=== PATIENT | female | born 1970 | race Caucasian/White ===

== ENCOUNTER 2024-03-18 09:30 | Inpatient (IN) ==
--- NOTE | 2024-03-08 10:25 | Anesthesiology Consultation ---
Date of Service March 08, 2024 Assessment & Plan (1) Encounter for pre-operative examination: Chart Review Chart Review: Acceptable Risk for Surgery and Patient NOT seen in Pre Admission Testing - Check test AM DOS -Infectious Disease screening: Per PAT nursing assessment on 03/03/24. No known infectious disease contacts in past 10 days or current infectious disease symptoms. No recent travel outside the country. History Surgery Operation Date: 03/18/24 11:05 Proposed Procedures p Laparoscopic Ileocecectomy - Bassam Almazan, DO Height/Weight Height: 5 ft 4 in Weight: 89.358 kg Allergies Allergy/AdvReac Type Severity Reaction Status Date / Time amoxicillin Allergy Severe Difficulty Verified 03/03/24 11:48 Breathing erythromycin base Allergy Severe Difficulty Verified 03/03/24 11:48 Breathing Penicillins Allergy Severe Difficulty Verified 03/03/24 11:48 Breathing Medications Home Medications Medication Instructions Recorded Confirmed Last Taken bupropion HCl 150 mg 24 hr tablet, 150 mg PO QAM 01/02/24 03/03/24 01/08/24 extended release buspirone 5 mg tablet 5 mg PO QAM 01/02/24 03/03/24 01/08/24 kiygygsvlkri-Yb-npzb-minerals 27 1 tab PO QAM 01/02/24 03/03/24 01/08/24 mg-0.4 mg tablet Past Medical History Medical History Anxiety 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 Past Family History Family History Mother Diabetes Heart disease Hypertension Dyslipidemia Father Heart disease Hypertension Denies family history of Ovarian cancer Breast cancer Colorectal cancer Past Surgical History Surgical History H/O colonoscopy History of hernia repair (1970) as infant Social History Smoking Status: Never smoker Do You Dip or Chew Tobacco: No Hx Alcohol Use: Yes Alcohol type: beer alcohol intake frequency: a few times a month Hx Substance Use: No substance use type: does not use Lab Results Anesthesia Preop Results Results Anesthesia Widget: WBC 8.32 K/ul (4.8-10.8) 03/05/24 Hgb 14.3 g/dl (12.0-16.0) 03/05/24 Hct 43.0 % (37.0-47.0) 03/05/24 Plt 260 K/uL (130-400) 03/05/24 Na 139 mmol/L (136-145) 03/05/24 K 3.8 mmol/L (3.5-5.1) 03/05/24 Cl 102 mmol/L (98-107) 03/05/24 CO2 30 mmol/L (21-32) 03/05/24 BUN 14 mg/dl (6-23) 03/05/24 Creat 0.65 mg/dl (0.6-1.2) 03/05/24 Glucose Level 81 mg/dl (70-99(Fasting)) 03/05/24 Testing Electrocardiogram Date: 03/05/24 Findings: + NSR @ (75bpm) Rightward axis Other Testing PET Scan 02/25/24= Borderline enlarged mediastinal lymph nodes demonstrate increased tracer uptake. No pathologic tracer uptake identified within the abdomen, pelvis or extremities. No bowel wall thickening or pathologically enlarged mesenteric lymph nodes.
--- NOTE | 2024-03-18 09:57 | History & Physical Bridge Note ---
Date of Service March 18, 2024 History & Physical Bridge Note I have examined the patient, reviewed the History & Physical and in the interval since the performance of the History & Physical I have noted the following changes of clinical significance: no changes noted
[2024-03-18] MEDS ORDERED: STAT IV/IM STA (10:12)
[2024-03-18] MEDS ORDERED: OCTREOTIDE ACETATE 500 MCG in SODIUM CHLORIDE 0.9% 100 ML IV PRN (10:15)
[2024-03-18] MEDS ORDERED: ePHEDrine sulfate 50 MG/ML AMP IV PRN (10:17)
[2024-03-18] MEDS ORDERED: HYDROmorphone INJ 1 MG/ML SYRINGE IV PRN (10:17)
[2024-03-18] MEDS ORDERED: ATROPINE SULFATE 0.1 MG/ML 10ML SYR IV PRN (10:17)
[2024-03-18] MEDS ORDERED: PROMETHAZINE HCL 6.25 MG in SODIUM CHLORIDE 0.9% 50 ML IV PRN (10:18)
[2024-03-18] MEDS: metroNIDAZOLE 500 MG/100 ML BAG IV SCH ×2 (10:18→17:21)
[2024-03-18] MEDS: LR 15ML/HR IV SCH (10:19)
[2024-03-18] MEDS ORDERED: LIDOCAINE 2% 2 ML VIAL/AMP(20MG/ML) INFIL ONE (10:26)
[2024-03-18] MEDS ORDERED: fentaNYL citrate PF 100 MCG/2 ML VIAL ONE ×2 (10:26→11:39)
[2024-03-18] MEDS ORDERED: DEXAMETHASONE SOD INJ 4 MG/ML VIAL ONE (10:26)
[2024-03-18] MEDS ORDERED: MIDAZOLAM HCL 1 MG/ML 2ML VIAL ONE (10:26)
[2024-03-18] MEDS ORDERED: PROPOFOL IV EMULSION 10 MG/ML 20 ML VIAL IV ONE (10:26)
[2024-03-18] MEDS ORDERED: ROCURONIUM BROMIDE 10 MG/ML 5 ML VIAL IV ONE ×2 (10:27→11:45)
[2024-03-18] MEDS: CIPROFLOXACIN / D5W 400 MG/200 ML BAG IV SCH ×2 (11:09→18:26)
[2024-03-18] MEDS ORDERED: LABETALOL HCL IV 5 MG/ML 20ML IV ONE (11:49)
[2024-03-18] MEDS ORDERED: SUGAMMADEX SODIUM 200 MG/2 ML VIAL IV ONE (13:20)
[2024-03-18] MEDS ORDERED: KETOROLAC 30 MG/ML VIAL ONE (13:24)
[2024-03-18] MEDS: BUPIVACAINE LIPOSOME 1.3% 266 MG/20 ML VIAL ONE (13:27)
[2024-03-18] MEDS: BUPIVACAINE/EPINEPHRINE 0.5% MPF 1:200,000 30 ML VIAL ONE (13:27)
--- NOTE | 2024-03-18 13:44 | Operative Report ---
PG Post Operative Report Pre & Post Diagnosis Operation Date: 03/18/24 11:55 Pre-Op Diagnosis: Carcinoid Tumor Determined by Biopsy Small Intestine Post-Op Diagnosis: Carcinoid Tumor Determined by Biopsy Small Intestine I identified the patient and participated in the time-out.: Yes Procedure Operation Date: 03/18/24 11:55 Actual Procedures p Laparoscopic Ileocecectomy(Not Applicable);partial omentectomy - Bassam Almazan DO Surgeon Bassam Almazan DO Patroller wolf Mccray; roman Quintana Estimated Blood Loss 50 Findings Consistent with Post-Op Diagnosis Specimens terminal ileum cecum portion of omentum Description of Procedure After informed consent was obtained the patient was taken to the operating room and placed in supine position. After successful intubation a Gibson catheter was placed and the abdomen was sterilely prepped and draped in usual fashion. I began by making a supraumbilical incision with an 11 blade scalpel. This was carried down through the soft tissue using cautery. Anterior fascia was opened using cautery and two #0 Vicryl stay sutures were placed. Peritoneum was elevated with hemostats and incised under direct vision using a Metzenbaum scissor. A finger sweep was performed and a 12 mm Verdin trocar was placed. The abdomen was insufflated to 18 mmHg. Laparoscope was inserted and the abdomen examined 360 degrees. A suprapubic 5 mm port and a left lower quadrant 12 mm port were placed under direct vision. I began by running the bowel and examining all peritoneal surfaces. There was no evidence of any other tumor burden on the liver or peritoneal surfaces ,small bowel mesentery or serosa etc. Her anatomy looked completely normal. Next I began by mobilizing the right colon along the white line of Toldt using the harmonic scalpel. I carried this up and around the hepatic flexure. A portion of omentum was also stuck to the right colon and I had to divide this to free up the right colon. Next I transected the terminal ileum several inches proximal to the ileocecal valve using a OFELIA brown cartridge linear stapler. Next a made a small window in the mid right colon proximal to the right colic vessels. I then used a OFELIA purple cartridge linear stapler to transect the junction of the right colon and cecum. I took down the mesentery of the terminal ileum and cecum staying low as possible to try and incorporate some lymph nodes with the specimen. Next I found a spot in the right upper quadrant and made a horizontal incision with a new scalpel. This was carried down through the soft tissue as well as fascia using cautery. Once in the abdomen I was then able to deliver the specimen and send it to pathology. There was a fair amount of omentum overlying the distal right and transverse colon so I did a partial omentectomy. This was sent as specimen as well. This was performed using a harmonic scalpel. Next we performed a aiaj-hm-hdej small bowel to distal right colon anastomosis using a Auspherix cartridge linear stapler. The common enterotomy was closed with a 2 layer handsewn closure using 3-0 Monocryl for serosal mucosal layers followed by 3-0 silk in Lembert fashion for serosa. 3-0 silk was also used to place a crotch stitch. There was adequate hemostasis. The anastomosis was widely patent with no evidence of ischemia. We then closed the muscle and fascia using #1 PDS in running fashion. We re-insufflated the abdomen. The anastomosis again looked intact with no twisting of the small bowel. There was adequate hemostasis. We thoroughly irrigated the right upper quadrant and right abdomen. The trocars were all removed and the abdomen desufflated. The fascia of the camera port was closed using 0 Vicryl in a vjlopb-[id number] fashion. All the wounds were irrigated. The larger incision was closed using 3-0 Vicryl for deep layers and 4-0 Monocryl for skin. 20 cc of Exparel was also put around this incision for postoperative analgesia. Smaller incisions were all closed using 4-0 Monocryl. Marcaine with epinephrine were injected around these incisions. Dermabond glue was used for the smaller incisions benzoin Steri-Strips gauze and tape were used for the larger incision. The patient was awakened extubated and transferred to recovery in stable condition. My nurse practitioner as well as physician visitor services information assistant were present for the entire case and were instrumental in providing exposure, running the camera, assisting with the anastomosis wound closure and dressing placement. I attest to the content of the Intraoperative Record and any orders documented therein. Any exceptions are noted below.
--- NOTE | 2024-03-18 14:35 | Anesthesiology Progress Note ---
Date of Service March 18, 2024 Anesthesia Post Procedure Vital Signs Vital Signs: Temp Pulse Resp BP Pulse Ox O2 Del Method O2 Flow Rate 03/18/24 14:25 62 16 121/73 96 Room Air 03/18/24 14:15 69 14 138/69 95 Room Air 03/18/24 14:05 69 20 136/75 98 Oxymask 3 03/18/24 13:54 36 C L 66 14 141/71 H 99 Oxymask 6 03/18/24 09:59 36.5 C 90 18 169/88 H 99 Room Air Transfer of Care Handoff Completed per policy Notes Mental Status: alert / awake / arousable and participated in evaluation Patient Amnestic to Procedure: Yes Nausea / Vomiting: adequately controlled Pain: adequately controlled Airway Patency, RR, SpO2: stable & adequate BP & HR: stable & adequate Hydration State: stable & adequate Anesthetic Complications: no major complications apparent and Pt Satisfied with anesthetic care
[2024-03-18] MEDS: fentaNYL citrate PF 100 MCG/2 ML VIAL IV PRN (14:47)
[2024-03-18] MEDS ORDERED: PROMETHAZINE 12.5 MG/50.5 ML BAG IV PRN (16:00)
[2024-03-18] MEDS ORDERED: HYDROmorphone INJ 0.5 MG/0.5 ML SYR IV PRN (16:00)
[2024-03-18] MEDS ORDERED: oxyCODONE/ACETAMINOPHEN 5mg/325mg TAB PO PRN (16:00)
[2024-03-18] MEDS ORDERED: ACETAMINOPHEN 1,000 MG/100 ML VIAL IV PRN (16:00)
[2024-03-18] MEDS: SODIUM CHLORIDE 0.9% 1,000 ML IV SCH (16:32)
[2024-03-18] MEDS: oxyCODONE/ACETAMINOPHEN 5mg/325mg TAB PO PRN (16:35)
[2024-03-18] MEDS ORDERED: Nursing to Pharmacy Communication SCH (19:15)
[2024-03-19] MEDS: CIPROFLOXACIN / D5W 400 MG/200 ML BAG IV SCH (05:59)
[2024-03-19] MEDS: CEROVITE ADV FORMULA TAB PO SCH (07:34)
[2024-03-19] MEDS: busPIRone 5 MG TAB PO SCH (07:34)
[2024-03-19] MEDS: buPROPion XL 150 MG TABCR PO SCH (07:34)
[2024-03-19 07:42] LABS: Basophils # (auto) 0.01 K/uL (0.00-0.20); Basophils % (auto) 0.1 %; Hematocrit (blood only) 38.1 % (37.0-47.0); Hemoglobin 12.8 g/dl (12.0-16.0); Immature Granulocytes # (auto) 0.04 K/uL (0.01-0.20); Immature Granulocytes % (auto) 0.4 %; Lymphocytes # (auto) 1.27 K/uL (1.20-3.40); Lymphocytes % (auto) 11.2 %; Mean Corpuscular Hemoglobin 30.5 pg (25.0-34.0); Mean Corpuscular Hgb Conc 33.6 g/dL (32.0-36.0); Mean Corpuscular Volume 90.9 fL (80.0-100.0); Mean Platelet Volume 10.5 fL (9.4-12.4); Monocytes # (auto) 0.98 K/uL (0.11-0.59); Monocytes % (auto) 8.6 %; Neutrophils # (auto) 9.05 K/uL (1.40-6.50); Neutrophils % (auto) 79.7 %; Platelet Count 229 K/uL (130-400); RDW Coefficient of Variation 12.1 % (11.5-14.5); RDW Standard Deviation 40.1 fL (36.4-46.3); Red Blood Count 4.19 M/uL (4.20-5.40); White Blood Count 11.35 K/ul (4.8-10.8)
[2024-03-19 07:46] LABS: Calcium 8.5 mg/dl (8.6-10.3); Creatinine Clr Calc Pharmacy 121.4 ml/min; Potassium 3.9 mmol/L (3.5-5.1)
[2024-03-19] MEDS: HYDROmorphone INJ 0.5 MG/0.5 ML SYR IV PRN (08:25)
--- NOTE | 2024-03-19 08:32 | Surgery Progress Note ---
Date of Service March 19, 2024 Assessment & Plan (1) History of colon surgery: Plan: doing as expected. stay on clears until bowel fx labs/vitals look good Dr. 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 Admission and Anticipated Discharge Date Admission Date: March 18, 2024 Subjective pt seen. having expected pain but otherwise no complaints. no nausea. monica clears. Physical Exam Physical Exam: alert. nad abd: soft. expected tenderness. dressings c/d/i Results & Data Vital Signs (Past 12 Hours) Vital Signs Temp Pulse Resp BP Pulse Ox O2 Del Method 03/19/24 07:41 36.9 C 70 15 122/66 98 Room Air 03/19/24 03:00 36.7 C 63 18 106/61 96 Room Air 03/18/24 23:00 36.6 C 73 18 103/66 95 Room Air PG Care Time/CCT Total # of Minutes Spent Total Time Spent with Patient: Total time spent is greater than 50% in coordination of care (as documented) at patient's floor/unit and/or counseling patient: Coding Level of Care Code 97264 Post Operative Follow-Up Diagnoses History of colon surgery Z98.890
[2024-03-20 06:55] LABS: Basophils # (auto) 0.04 K/uL (0.00-0.20); Basophils % (auto) 0.5 %; Eosinophils # (auto) 0.08 K/uL (0.00-0.50); Eosinophils % (auto) 0.9 %; Hematocrit (blood only) 38.3 % (37.0-47.0); Hemoglobin 12.7 g/dl (12.0-16.0); Immature Granulocytes # (auto) 0.02 K/uL (0.01-0.20); Immature Granulocytes % (auto) 0.2 %; Lymphocytes % (auto) 21.4 %; Mean Corpuscular Hemoglobin 30.6 pg (25.0-34.0); Mean Corpuscular Hgb Conc 33.2 g/dL (32.0-36.0); Mean Corpuscular Volume 92.3 fL (80.0-100.0); Mean Platelet Volume 9.9 fL (9.4-12.4); Monocytes # (auto) 0.79 K/uL (0.11-0.59); Monocytes % (auto) 9.4 %; Neutrophils % (auto) 67.6 %; Platelet Count 181 K/uL (130-400); RDW Coefficient of Variation 12.4 % (11.5-14.5); RDW Standard Deviation 42.1 fL (36.4-46.3); Red Blood Count 4.15 M/uL (4.20-5.40); White Blood Count 8.43 K/ul (4.8-10.8)
[2024-03-20 07:27] LABS: BUN Creatinine Ratio 14.5 (10-20); Calcium 8.3 mg/dl (8.6-10.3); Potassium 3.8 mmol/L (3.5-5.1)
--- NOTE | 2024-03-20 13:42 | Surgery Progress Note ---
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 She is now POD 2 s/p ileocecectomy with omentectomy with Dr. Almazan on 03/18/2024. The patient is progressing well, hemodynamically stable without fevers and tolerating clear liquids. H/H stable. She is not yet passing flatus or having BMs. Continue with clear liquids at this time. Will hold off advancing diet until bowel function returns. Previous single episode of lightheadedness yesterday has not returned and hemodynamics have been restored. Will Hep-Lock IV as patient is tolerating clears well. Continue pain control with oral analgesics. Antiemetic as needed. Encourage increased ambulation with assistance as pain control becomes more consistent. Will initiate chemical DVT prophylaxis. Admission and Anticipated Discharge Date Admission Date: March 18, 2024 Subjective Patient feels as though she is improving with notable mild improvement in postoperative pain. She continues to tolerate clear liquids but has not yet passed flatus or had bowel movements. She has been able to ambulate from bed to chair. Physical Exam Constitutional: not ill appearing, not disheveled and not in distress Respiratory: normal respiratory effort; no respiratory distress, no labored breathing and does not use accessory muscles Gastrointestinal (Abdomen): Appropriate postsurgical abdomen. Mild irritation at the umbilical incision. The incision remains intact sealed with Dermabond. There is no active drainage and no swelling. Surgical bandages over port sites to the lateral right abdomen. 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
--- NOTE | 2024-03-21 05:15 | Surgery Progress Note ---
<Statement entered by Francisco Quan DO - 03/21/24 12:47> I have seen and examined this patient this am. Note taken to the PA's encounter of clear drainage. There was no active drainage at the time of my inspection. Some mild erythema surrounding the incisions. At the umbilicus, this appears somewhat less. No evidence for a drainable collection at this time, there is no swelling. Will continue to follow. Otherwise she is doing quite well without complaints. Hardly any pain this am and feels much better today. States she is ambulating aggressively, no flatus as of yet and continues to tolerate clears without any issues. 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 labs when available Concerning patient's umbilical incisionsuspect patient may be draining some inflammatory fluid/has developed or developed a small seroma. At the time my exam the drainage did appear clear and was not purulent. Will continue to monitor closely Patient is receiving Lovenox for DVT prevention Admission and Anticipated Discharge Date Admission Date: March 18, 2024 Subjective Patient is currently resting comfortably in bed. She reports minimal pain from her surgical incisions. She has not had a bowel movement or passed any flatus since surgery. She does deny any nausea or vomiting. Patient says that she has been able to ambulate in the hallway with some assistance. (This morning when ambulating she says she felt somewhat steady without any lightheadedness or dizziness). She denies any fevers, shakes, or chills. She denies any shortness of breath. Physical Exam Gastrointestinal (Abdomen): Abdomen is soft with minimal distention. Patient has some appropriate tenderness near her surgical incisions. Her umbilical decision has a small amount of serous drainage coming from the and small amount of surrounding erythema. 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
[2024-03-21 07:24] LABS: Basophils # (auto) 0.04 K/uL (0.00-0.20); Basophils % (auto) 0.5 %; Eosinophils # (auto) 0.08 K/uL (0.00-0.50); Eosinophils % (auto) 0.9 %; Hematocrit (blood only) 37.8 % (37.0-47.0); Immature Granulocytes # (auto) 0.05 K/uL (0.01-0.20); Immature Granulocytes % (auto) 0.6 %; Lymphocytes # (auto) 1.44 K/uL (1.20-3.40); Lymphocytes % (auto) 16.2 %; Mean Corpuscular Hemoglobin 30.9 pg (25.0-34.0); Mean Corpuscular Hgb Conc 34.4 g/dL (32.0-36.0); Mean Corpuscular Volume 89.8 fL (80.0-100.0); Mean Platelet Volume 10.5 fL (9.4-12.4); Monocytes # (auto) 0.68 K/uL (0.11-0.59); Monocytes % (auto) 7.7 %; Neutrophils # (auto) 6.59 K/uL (1.40-6.50); Neutrophils % (auto) 74.1 %; Platelet Count 221 K/uL (130-400); RDW Coefficient of Variation 11.8 % (11.5-14.5); RDW Standard Deviation 38.5 fL (36.4-46.3); Red Blood Count 4.21 M/uL (4.20-5.40); White Blood Count 8.88 K/ul (4.8-10.8)
[2024-03-21 07:35] LABS: Calcium 8.8 mg/dl (8.6-10.3); Creatinine Clr Calc Pharmacy 140.8 ml/min; Potassium 3.6 mmol/L (3.5-5.1)
[2024-03-21] MEDS: ENOXAPARIN INJ 40 MG/0.4 ML SYR SQ SCH (10:11)
[2024-03-22] MEDS: ONDANSETRON INJ 2 MG/ML 2 ML VIAL IV PRN (05:03)
[2024-03-22 10:03] LABS: Basophils # (auto) 0.02 K/uL (0.00-0.20); Basophils % (auto) 0.2 %; Eosinophils # (auto) 0.02 K/uL (0.00-0.50); Eosinophils % (auto) 0.2 %; Hematocrit (blood only) 45.9 % (37.0-47.0); Hemoglobin 15.5 g/dl (12.0-16.0); Immature Granulocytes # (auto) 0.06 K/uL (0.01-0.20); Immature Granulocytes % (auto) 0.5 %; Lymphocytes # (auto) 1.11 K/uL (1.20-3.40); Mean Corpuscular Hemoglobin 30.3 pg (25.0-34.0); Mean Corpuscular Hgb Conc 33.8 g/dL (32.0-36.0); Mean Corpuscular Volume 89.8 fL (80.0-100.0); Mean Platelet Volume 10.2 fL (9.4-12.4); Monocytes # (auto) 0.62 K/uL (0.11-0.59); Monocytes % (auto) 5.1 %; Neutrophils # (auto) 10.44 K/uL (1.40-6.50); Platelet Count 280 K/uL (130-400); RDW Coefficient of Variation 11.9 % (11.5-14.5); RDW Standard Deviation 39.4 fL (36.4-46.3); Red Blood Count 5.11 M/uL (4.20-5.40); White Blood Count 12.27 K/ul (4.8-10.8)
[2024-03-22 10:12] LABS: BUN Creatinine Ratio 17.9 (10-20); Calcium 9.2 mg/dl (8.6-10.3); Creatinine Clr Calc Pharmacy 125.7 ml/min; Potassium 3.8 mmol/L (3.5-5.1)
--- NOTE | 2024-03-22 11:18 | Surgery Progress Note ---
Date of Service March 22, 2024 Assessment & Plan (1) History of colon surgery: Plan will give some low dose ativan for anxiety. will advance to full liquids monitor wbc path still pending. not ready for d/c yet. Admission and Anticipated Discharge Date Admission Date: March 18, 2024 Subjective pt seen. feeling a little anxious today with some mild dizziness and mild nausea. denies abdominal pain. +bm's x 2. she admits to taking herself off her buspar and wellbutrin at home for about 2 months. Physical Exam Physical Exam: alert. nad abd: soft. nt. incisions look good. Results & Data Vital Signs (Past 12 Hours) Vital Signs Temp Pulse Resp BP BP Pulse Ox O2 Del Method 03/22/24 09:45 67 16 116/75 94 Room Air 03/22/24 07:59 Room Air 03/22/24 07:33 36.6 C 77 16 109/68 94 Room Air 03/22/24 07:23 36.9 C 71 16 114/67 94 Room Air PG Care Time/CCT Total # of Minutes Spent Total Time Spent with Patient: Total time spent is greater than 50% in coordination of care (as documented) at patient's floor/unit and/or counseling patient: Coding Level of Care Code 36766 Post Operative Follow-Up Diagnoses History of colon surgery Z98.890
[2024-03-22] MEDS: ONDANSETRON 4 MG OD TAB PO PRN (12:09)
[2024-03-22] MEDS: ACETAMINOPHEN 325 MG TAB PO PRN (13:59)
[2024-03-22] MEDS: LORazepam 0.5 MG TAB PO PRN (13:59)
[2024-03-22] MEDS: ACETAMINOPHEN 1,000 MG/100 ML VIAL IV PRN (16:57)
[2024-03-23 06:52] LABS: Basophils # (auto) 0.04 K/uL (0.00-0.20); Basophils % (auto) 0.3 %; Eosinophils # (auto) 0.13 K/uL (0.00-0.50); Hematocrit (blood only) 46.5 % (37.0-47.0); Hemoglobin 15.8 g/dl (12.0-16.0); Immature Granulocytes # (auto) 0.06 K/uL (0.01-0.20); Immature Granulocytes % (auto) 0.5 %; Lymphocytes # (auto) 1.72 K/uL (1.20-3.40); Lymphocytes % (auto) 13.1 %; Mean Corpuscular Hemoglobin 30.3 pg (25.0-34.0); Mean Corpuscular Volume 89.3 fL (80.0-100.0); Mean Platelet Volume 9.7 fL (9.4-12.4); Monocytes # (auto) 1.06 K/uL (0.11-0.59); Neutrophils # (auto) 10.17 K/uL (1.40-6.50); Neutrophils % (auto) 77.1 %; Platelet Count 295 K/uL (130-400); RDW Coefficient of Variation 12.2 % (11.5-14.5); RDW Standard Deviation 39.8 fL (36.4-46.3); Red Blood Count 5.21 M/uL (4.20-5.40); White Blood Count 13.18 K/ul (4.8-10.8)
[2024-03-23 07:06] LABS: BUN Creatinine Ratio 21.9 (10-20); Calcium 9.2 mg/dl (8.6-10.3); Potassium 4.1 mmol/L (3.5-5.1)
--- NOTE | 2024-03-23 08:15 | Surgery Progress Note ---
Date of Service March 23, 2024 Assessment & Plan (1) History of colon surgery: Plan: POD 5 anxiety better with oral Ativan. Patient stopped her Wellbutrin and Buspar without PCP being notified, reports she didnt feel it was helping her. Discussed f/u op with PCP, and that she may need to trial another medication and along with counseling to manage her anxiety. Verbalized understanding depression and anxiety medications can take weeks before feeling any affects. Having expected post surgical discomfort. No n/v , +flatus and BMs . On full liquids , will advance to low fiber for lunch Encouraged up OOB today and ambulation in halls VSS afebrile, noted elevation in wbc , surgeon aware. As above. Feeling much better today. No complaints. Will advance to low fiber diet. If she does okay potential discharge tomorrow. Denies abdominal pain. Denies nausea today. Admission and Anticipated Discharge Date Admission Date: March 18, 2024 Subjective Pt reports she is feeling much better today than yesterday Ativan for anxiety is helping had one episode of emesis yesterday with oral medication has denied n/v since expected post surgical discomfort , stopped narcotics is using IV Tylenol. Reports crushing Tylenol at home and taking with apple sauce. Review of Systems Constitutional: no fever and no chills Respiratory: no dyspnea Cardiovascular: no chest pain Gastrointestinal: + abdominal pain; no nausea and no vomit ing Genitourinary: no dysuria Musculoskeletal: no muscle weakness Psychiatric: + anxiety Physical Exam Constitutional: cooperative and comfortable; no acute distress Respiratory: normal respiratory effort; no respiratory distress Cardiovascular: Rate/Rhythm: regular rate Gastrointestinal (Abdomen): Inspection/Auscultation: + abdominal surgical incision (steri strips R side, dermbond to port sites, all CDI ); abdomen not distended Percussion/Palpation: abdomen soft Musculoskeletal: no cyanosis or clubbing, extremities motor strength 5/5 Psychiatric: A+Ox3, euthymic affect Results & Data Vital Signs (Past 12 Hours) Vital Signs Temp Pulse Resp BP Pulse Ox O2 Del Method 03/23/24 07:22 98.6 F 83 18 138/83 95 Room Air 03/22/24 20:54 97.7 F 82 15 125/77 96 Room Air Results CBC w Diff Results: RBC 5.21 M/uL (4.20-5.40) 03/23/24 WBC 13.18 K/ul (4.8-10.8) H 03/23/24 Hgb 15.8 g/dl (12.0-16.0) 03/23/24 Hct 46.5 % (37.0-47.0) 03/23/24 MCV 89.3 fL (80.0-100.0) 03/23/24 MCH 30.3 pg (25.0-34.0) 03/23/24 MCHC 34.0 g/dL (32.0-36.0) 03/23/24 RDW Standard Deviation 39.8 fL (36.4-46.3) 03/23/24 RDW Coefficient of Variation 12.2 % (11.5-14.5) 03/23/24 Plt Count 295 K/uL (130-400) 03/23/24 MPV 9.7 fL (9.4-12.4) 03/23/24 Neutrophils (%) (Auto) 77.1 % 03/23/24 Lymphocytes (%) (Auto) 13.1 % 03/23/24 Monocytes # (Auto) 1.06 K/uL (0.11-0.59) H 03/23/24 Eosinophils # (Auto) 0.13 K/uL (0.00-0.50) 03/23/24 Immature Granulocyte % (Auto) 0.5 % 03/23/24 Neutrophils # (Auto) 10.17 K/uL (1.40-6.50) H 03/23/24 Lymphocytes # (Auto) 1.72 K/uL (1.20-3.40) 03/23/24 Monocytes # (Auto) 1.06 K/uL (0.11-0.59) H 03/23/24 Eosinophils # (Auto) 0.13 K/uL (0.00-0.50) 03/23/24 Basophils # (Auto) 0.04 K/uL (0.00-0.20) 03/23/24 Immature Granulocyte # (Auto) 0.06 K/uL (0.01-0.20) 5 PG Care Time/CCT Total # of Minutes Spent Total Time Spent with Patient: Total time spent is greater than 50% in coordination of care (as documented) at patient's floor/unit and/or counseling patient: Coding Level of Care Code 01449 Post Operative Follow-Up Diagnoses History of colon surgery Z98.890
[2024-03-24 07:34] LABS: Basophils # (auto) 0.04 K/uL (0.00-0.20); Basophils % (auto) 0.4 %; Eosinophils # (auto) 0.22 K/uL (0.00-0.50); Eosinophils % (auto) 2.2 %; Hematocrit (blood only) 41.5 % (37.0-47.0); Hemoglobin 14.1 g/dl (12.0-16.0); Immature Granulocytes # (auto) 0.05 K/uL (0.01-0.20); Immature Granulocytes % (auto) 0.5 %; Lymphocytes # (auto) 1.76 K/uL (1.20-3.40); Lymphocytes % (auto) 17.7 %; Mean Corpuscular Hemoglobin 30.3 pg (25.0-34.0); Mean Corpuscular Volume 89.1 fL (80.0-100.0); Monocytes # (auto) 0.84 K/uL (0.11-0.59); Monocytes % (auto) 8.4 %; Neutrophils # (auto) 7.04 K/uL (1.40-6.50); Neutrophils % (auto) 70.8 %; Platelet Count 268 K/uL (130-400); RDW Coefficient of Variation 12.4 % (11.5-14.5); RDW Standard Deviation 40.1 fL (36.4-46.3); Red Blood Count 4.66 M/uL (4.20-5.40); White Blood Count 9.95 K/ul (4.8-10.8)
[2024-03-24 07:47] LABS: Calcium 8.7 mg/dl (8.6-10.3); Creatinine Clr Calc Pharmacy 153.1 ml/min; Potassium 3.9 mmol/L (3.5-5.1)
--- NOTE | 2024-03-24 07:55 | Surgery Progress Note ---
Date of Service March 24, 2024 Assessment & Plan (1) History of colon surgery: Plan: POD 6 Having expected post surgical discomfort, only taking tylenol, none since last night No n/v , +flatus and BMs , on low fiber WBC 9 (13), VSS afebrile , h/h stable tolerating low fiber surgical pathology still pending Pt stable for d/c , f/u in 2 weeks o/p as above. doing well. instructions discussed. f/u in 1-2 weeks Admission and Anticipated Discharge Date Admission Date: March 18, 2024 Subjective Pt reports she is feeling good this AM no pain or anxiety medication this AM denies n/v , +flatus and bm up ambulating in halls Review of Systems Constitutional: no fever and no chills Respiratory: no dyspnea Cardiovascular: no chest pain Gastrointestinal: + abdominal pain; no nausea and no vomit ing Genitourinary: no dysuria Musculoskeletal: no muscle weakness Psychiatric: no anxiety Physical Exam Constitutional: cooperative and comfortable; no acute distress Respiratory: normal respiratory effort; no respiratory distress Cardiovascular: Rate/Rhythm: regular rate Gastrointestinal (Abdomen): Inspection/Auscultation: + abdominal surgical incision (steri strips R side, dermbond to port sites, all CDI ); abdomen not distended Percussion/Palpation: abdomen soft Musculoskeletal: no cyanosis or clubbing, extremities motor strength 5/5 Psychiatric: A+Ox3, euthymic affect Results & Data Vital Signs (Past 12 Hours) Vital Signs Temp Pulse Resp BP Pulse Ox O2 Del Method 03/23/24 21:44 98.1 F 76 16 121/83 96 Room Air Results CBC w Diff Results: RBC 4.66 M/uL (4.20-5.40) 03/24/24 WBC 9.95 K/ul (4.8-10.8) 03/24/24 Hgb 14.1 g/dl (12.0-16.0) 03/24/24 Hct 41.5 % (37.0-47.0) 03/24/24 MCV 89.1 fL (80.0-100.0) 03/24/24 MCH 30.3 pg (25.0-34.0) 03/24/24 MCHC 34.0 g/dL (32.0-36.0) 03/24/24 RDW Standard Deviation 40.1 fL (36.4-46.3) 03/24/24 RDW Coefficient of Variation 12.4 % (11.5-14.5) 03/24/24 Plt Count 268 K/uL (130-400) 03/24/24 MPV 10.0 fL (9.4-12.4) 03/24/24 Neutrophils (%) (Auto) 70.8 % 03/24/24 Lymphocytes (%) (Auto) 17.7 % 03/24/24 Monocytes # (Auto) 0.84 K/uL (0.11-0.59) H 03/24/24 Eosinophils # (Auto) 0.22 K/uL (0.00-0.50) 03/24/24 Immature Granulocyte % (Auto) 0.5 % 03/24/24 Neutrophils # (Auto) 7.04 K/uL (1.40-6.50) H 03/24/24 Lymphocytes # (Auto) 1.76 K/uL (1.20-3.40) 03/24/24 Monocytes # (Auto) 0.84 K/uL (0.11-0.59) H 03/24/24 Eosinophils # (Auto) 0.22 K/uL (0.00-0.50) 03/24/24 Basophils # (Auto) 0.04 K/uL (0.00-0.20) 03/24/24 Immature Granulocyte # (Auto) 0.05 K/uL (0.01-0.20) 5 PG Care Time/CCT Total # of Minutes Spent Total Time Spent with Patient: Total time spent is greater than 50% in coordination of care (as documented) at patient's floor/unit and/or counseling patient: Coding Level of Care Code 88731 Post Operative Follow-Up Diagnoses History of colon surgery Z98.890
--- NOTE | 2024-03-31 07:08 | Discharge Summary ---
Date of Service March 24, 2024 Principal Diagnosis Laparoscopic Ileocecectomy Discharge Exam Constitutional cooperative and comfortable; no acute distress Respiratory normal respiratory effort; no respiratory distress Cardiovascular Rate/Rhythm: regular rate Gastrointestinal (Abdomen) Inspection/Auscultation: + abdominal surgical incision (steri strips R side, dermbond to port sites, all CDI ); abdomen not distended Percussion/Palpation: abdomen soft Musculoskeletal no cyanosis or clubbing, extremities motor strength 5/5 Psychiatric A+Ox3, euthymic affect Discharge Data Allergies Allergy/AdvReac Type Severity Reaction Status Date / Time amoxicillin Allergy Severe Difficulty Verified 03/18/24 09:56 Breathing erythromycin base Allergy Severe Difficulty Verified 03/18/24 09:56 Breathing Penicillins Allergy Severe Difficulty Verified 03/18/24 09:56 Breathing Procedures Performed Operation Date: 03/18/24 11:55 Actual Procedures p Laparoscopic Ileocecectomy(Not Applicable) - Bassam Almazan, DO Hospital Course (1) History of colon surgery: This is a 53 yo female who presented to the [facility] on 03/18/24 for a Laparoscopic Ileocecectomy with Dr. Almazan. The patient tolerated the procedure well, see operative report for full details. Post operatively the patient's diet was advanced slowly until she was tolerating low fiber. Her post surgical pain managed on prn medication, and incisions clean/dry/intact. She had expirenced some anxiety throughout her stay which was controlled with oral Ativan PRN. She expressed that she stopped her routine anxiety medications about one month prior to procedure, as she felt they were not helping her. She was instructed to follow up with her PCP outpatient for further workup and management for anxiety. She began having bowel movements and showed no signs of post surgical infection, VSS. On POD#6 03/24/24 the patient was deemed stable for discharge to home. The patient was given discharge instructions, follow up recommendations, return precautions. 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 No soaking in pool/bath for 2 weeks Exercise/Sports: Wait until after follow-up appointment Driving/Machine Use: no driving if taking narcotic pain medication Non-emergency contact: Surgeon Call non-emergency contact if: you have any medication questions, your symptoms worsen, your temperature is above 101.5, your wound has increased redness, your wound has increased drainage and your wound pain has increased Follow-up/Referrals: Bassam Almazan DO [Surgeon] - 04/06/24 10:00 am (please call to schedule follow up in the office within 2 weeks ) Ludivina Herbert CRNP [Primary Care Provider] - Diet: Low Fiber Addtl Attending Provider Instructions: SPECIAL CARE INSTRUCTIONS: * You have skin glue over your small incisions called dermabond. you may shower with this on. It will tend to dissolve and fall off within a couple weeks. Do not pick at the skin glue You will have small white bandages on underneath that are over your incision. You may shower with these on. They will tend to fall off on their own in a 7-10 days. please follow up with your PCP for anxiety treatment. * You may shower . NO soaking in pools or baths for 2 weeks * No lifting greater than 10lbs. No strenuous exercise until cleared by surgeon. Light walking is accepted. * No driving while taking narcotic pain medication; wait at least 3 days * No drinking alcohol while taking narcotic pain medication * May use Ibuprofen/Tylenol over the counter for pain as tolerated. Do not exceed 3grams of Tylenol per 24 hours * Expect some swelling and bruising. * Diet- please follow a low fiber diet until otherwise directed by the surgeon Call your doctor if: * Temperature above 101 degrees, nausea/vomiting, fever/chills * Pain not relieved by pain medicine ordered * There is increased drainage or redness from any incision * You have any unanswered questions or concerns [phone]. FOLLOW UP VISIT: If not already scheduled, please call the office for a follow-up visit. Office Pending Studies at Discharge: Yes Studies:: surgical pathology Stand-Alone Forms: My [facility] [employer] Medications and DC Order Prescriptions: New oxycodone 5 mg tablet 5 - 10 mg PO .[id number] PRN (Reason: pain, for initial therapy, max 6 tabs per day) Qty: 15 0RF Continued buspirone 5 mg Tablet 5 mg PO QAM [id number]-minerals 27-0.4 mg Tablet 1 tab PO QAM bupropion HCl [Wellbutrin XL] 150 mg tablet extended release 24 hr 150 mg PO QAM Discharge Orders: Discharge Order (Routine); Ordered 03/24/24 Ordered By: Luke Bullock/Other Patient Handouts: Low-Fiber Diet Admission Data Admit Date/Time: 03/18/24 13:50 Attending Provider: Bassam Almazan Admit Provider: Bassam Almazan Primary Care Provider: Ludivina Herbert Other Interventions: Discharge Summary Assessment (RN) Last Done: 03/24/24 13:35 Coding Level of Care Code 95943 IN/OBS DISCH 30 MIN/LESS Diagnoses History of colon surgery Z98.890
== END 2024-03-24 14:20 | disposition home or self-care (01) | DRG 331 ==
LOC: ASU 09:30 → 3E 13:50
DX: Z88.1 Allergy status to other antibiotic agents; E66.9 Obesity, unspecified; Z83.3 Family history of diabetes mellitus; C7A.012 Malignant carcinoid tumor of the ileum; Z68.35 Body mass index [BMI] 35.0-35.9, adult; Z88.0 Allergy status to penicillin